=== PATIENT | female | born 2005 | race Caucasian/White ===

== ENCOUNTER → 2024-06-14 17:47 | Outpatient (BNVA) | payer OTHER, SELFPAY | PROVIDERS: Visit Provider Family Medicine | DX: N39.0 Urinary tract infection, site not specified (principal); E28.2 Polycystic ovarian syndrome; Z76.89 Persons encountering health services in other specified circumstances; N83.209 Unspecified ovarian cyst, unspecified side | CPT/HCPCS: 81000 ==

== ENCOUNTER → 2024-07-18 10:59 | Outpatient (BNVA) | payer OTHER, SELFPAY | PROVIDERS: Visit Provider Family Medicine | DX: R30.0 Dysuria (principal) | CPT/HCPCS: 87086 ==

== ENCOUNTER → 2024-07-25 14:45 | Outpatient (BNVA) | payer OTHER, SELFPAY | PROVIDERS: Visit Provider Nurse Practitioner | DX: R30.0 Dysuria (principal); R31.9 Hematuria, unspecified | CPT/HCPCS: 74018; 81000 ==

== ENCOUNTER → 2025-01-12 08:40 | Outpatient (BNVA) | payer OTHER, SELFPAY | PROVIDERS: PCP Nurse Practitioner; Visit Provider Nurse Practitioner | DX: R11.10 Vomiting, unspecified (principal); R31.9 Hematuria, unspecified | CPT/HCPCS: 81000; 87086; 87400 ==

== ENCOUNTER → 2025-03-07 15:06 | Outpatient (BNVA) | payer OTHER, SELFPAY | PROVIDERS: PCP Nurse Practitioner; Visit Provider Nurse Practitioner | DX: R56.9 Unspecified convulsions (principal) | CPT/HCPCS: 80053; 80061; 82746; 84443; 85025 ==

== ENCOUNTER → 2025-10-04 13:51 | Outpatient (BNVA) | payer OTHER, SELFPAY | PROVIDERS: PCP Nurse Practitioner; Visit Provider Nurse Practitioner | DX: N39.0 Urinary tract infection, site not specified (principal); R11.0 Nausea; R31.9 Hematuria, unspecified | CPT/HCPCS: 81000; 81025; 87086 ==